=== PATIENT | female | born 1995 | race Two or more races ===

== ENCOUNTER → 2024-11-05 07:54 | Outpatient (CLI) | payer OTHER ==
[2024-11-05 09:01] LABS: HEMATOCRIT 36.5 % (36.0-45.00); HEMOGLOBIN 12.4 g/dL (12.0-15.00); MEAN CELL VOLUME 93.9 fL (80.00-100.00); MEAN CORPUSCULAR HGB CONC 34.1 g/dl (32.0-36.0); PLATELET COUNT 395 K/uL (150-450); RED BLOOD COUNT 3.89 M/uL (4.00-6.00); RED CELL DISTRIBUTION WIDTH 13.4 % (11.5-14.5)
[2024-11-05 09:19] LABS: COL EPI 89 SECONDS (82-175)
[2024-11-05 09:24] LABS: INR 1.01; PARTIAL THROMBOPLASTIN TIME 26.6 SECONDS (22.0-34.0)
== END | disposition home or self-care (01) ==
LOC: LAB 07:54
PROVIDERS: ATTEND Otolaryngology
DX: D68.9 Coagulation defect, unspecified (principal); O99.13 Other diseases of the blood and blood-forming organs and certain disorders involving the immune mechanism complicating the puerperium; I78.8 Other diseases of capillaries

== ENCOUNTER 2025-01-30 07:13 | Outpatient (CLI) | payer OTHER ==
[2025-01-30 08:52] LABS: URINE APPEARANCE Clear; URINE BILIRRUBIN Negative (NEGATIVE); URINE BLOOD Negative; URINE COLOR Yellow; URINE GLUCOSE Negative (NEGATIVE); URINE KETONE Negative (NEGATIVE); URINE LEUKOCYTE Negative; URINE NITRATE Negative; URINE PROTEIN Negative (NEGATIVE); URINE UROBILINOGEN 0.2 E.U./dl
[2025-01-30 08:54] LABS: HEMATOCRIT 36.1 % (36.0-45.00); HEMOGLOBIN 12.2 g/dL (12.0-15.00); MEAN CELL VOLUME 92.6 fL (80.00-100.00); MEAN CORPUSCULAR HEMOGLOBIN 31.2 pg (27.00-32.0); MEAN CORPUSCULAR HGB CONC 33.7 g/dl (32.0-36.0); PLATELET COUNT 352 K/uL (150-450); RED CELL DISTRIBUTION WIDTH 13.2 % (11.5-14.5)
[2025-01-30 08:56] LABS: URINE EPITHELIAL CELLS 8.2 uL (0.0-38.8); URINE RBC 9.5 uL (0.0-20.8)
[2025-01-30 09:21] LABS: URINE WBC 1.2 uL (0.0-23.2)
[2025-01-30 09:40] LABS: CALCIUM 8.8 mg/dL (8.5-10.1); CREATININE SERUM 0.55 mg/dL (0.55-1.02); GFR 130.68; POTASSIUM 4.42 mEq/L (3.5-5.1); TSH 1.5 uIU/mL (0.358-3.74)
== END 2025-01-30 07:14 | disposition home or self-care (01) ==
LOC: LAB 07:13
DX: R73.9 Hyperglycemia, unspecified (principal); R78.2 Finding of cocaine in blood; N39.0 Urinary tract infection, site not specified; R80.9 Proteinuria, unspecified; E55.9 Vitamin D deficiency, unspecified; D51.9 Vitamin B12 deficiency anemia, unspecified; D64.9 Anemia, unspecified; E03.9 Hypothyroidism, unspecified; Z12.11 Encounter for screening for malignant neoplasm of colon

== ENCOUNTER 2025-03-08 05:29 | Day surgery (SDC) | payer OTHER ==
[2025-03-01 08:15] LABS: URINE APPEARANCE Clear; URINE BILIRRUBIN Negative (NEGATIVE); URINE BLOOD Negative; URINE COLOR Yellow; URINE GLUCOSE Negative (NEGATIVE); URINE KETONE Negative (NEGATIVE); URINE LEUKOCYTE Negative; URINE NITRATE Negative; URINE PROTEIN Negative (NEGATIVE); URINE UROBILINOGEN 0.2 E.U./dl
[2025-03-01 08:16] VITALS: BP 114/84
[2025-03-01 08:20] LABS: URINE BACTERIA 113.7 uL (0.0-1933); URINE EPITHELIAL CELLS 7.4 uL (0.0-38.8); URINE RBC 7.5 uL (0.0-20.8); URINE WBC 2.2 uL (0.0-23.2)
[2025-03-01 08:33] LABS: BASO % 0.6 % (0.1-1.2); EOS # 0.16 (0.04-0.54); EOS % 1.4 % (0.7-7.0); HEMATOCRIT 34.7 % (34.1-44.9); HEMOGLOBIN 12.2 g/dL (11.2-15.7); LYMPH # 1.93 (1.18-3.74); LYMPH % 16.5 % (19.3-53.1); MEAN CORPUSCULAR HEMOGLOBIN 31.1 pg (25.6-32.2); MONO # 1.35 (0.24-0.82); MONO % 11.5 % (4.7-12.5); NEUT # 8.18 (1.56-6.13); NEUT % 69.8 % (34.0-71.1); PLATELET COUNT 386 K/uL (163-369); RED BLOOD COUNT 3.92 M/uL (3.93-5.22); RED CELL DISTRIBUTION WIDTH 13.8 % (11.6-14.4)
[2025-03-01 08:59] LABS: INR 1.04; PROTHROMBIN TIME 11.3 SECONDS (9.0-11.5)
[2025-03-01 09:00] LABS: ALBUMIN 3.7 gm/dL (3.4-5.0); BILIRUBIN TOTAL 0.57 mg/dL (0.3-1.2); CALCIUM 8.6 mg/dL (8.5-10.1); CREATININE SERUM 0.58 mg/dL (0.55-1.02); GFR 122.91; GLOBULINA 4.3 G/DL (2.4-3.5); POTASSIUM 4.21 mEq/L (3.5-5.1)
[~2025-03-08] VITALS: Ht 162.6 cm; Wt 59.4 kg
[~2025-03-08 05:29] MED LIST: PROAIR RESPICL90 MCG IH
[2025-03-08] MEDS ORDERED: DEXAMETHASONE 4 MG TABLET PO ONE (11:45)
[2025-03-08] MEDS ORDERED: MORPHINE SULFATE 4 MG/ML VIAL IV ONE (13:20)
== END 2025-03-08 16:30 | disposition home or self-care (01) ==
LOC: CIR.AMB 05:29
PROVIDERS: ATTEND Otolaryngology
DX: J35.1 Hypertrophy of tonsils (principal); Z91.041 Radiographic dye allergy status; Z91.013 Allergy to seafood

== ENCOUNTER 2025-03-19 09:23 | Outpatient (CLI) | payer OTHER ==
[2025-03-20 19:12] LABS: chla t Negative (Negative); neiss Negative (Negative)
== END 2025-03-19 09:31 | disposition home or self-care (01) ==
LOC: LAB 09:23
DX: Z00.00 Encounter for general adult medical examination without abnormal findings (principal)

== ENCOUNTER 2025-08-29 09:05 | Emergency (ER) | payer OTHER ==
[~2025-08-29] VITALS: Ht 162.6 cm; Wt 60.3 kg
[2025-08-29] MEDS ORDERED: BENZONATATE 200 MG CAPSULE PO ONE (09:45)
[2025-08-29] MEDS ORDERED: LEVALBUTEROL HCL 1.25 MG/3 ML SOLUTION IH ONE (09:45)
[2025-08-29] MEDS ORDERED: KETOROLAC TROMETHAMINE 60 MG VIAL IM ONE ×2 (09:45→10:28)
[2025-08-29] MEDS ORDERED: CEFTRIAXONE SODIUM 1,000 MG VIAL IM ONE (09:45)
[2025-08-29] MEDS ORDERED: CEFTRIAXONE SODIUM 1,000 MG VIAL ONE (10:28)
[2025-08-29 11:06] LABS: BASO % 1.3 % (0.1-1.2); EOS # 0.84 (0.04-0.54); EOS % 12.1 % (0.7-7.0); LYMPH # 1.70 (1.18-3.74); LYMPH % 24.4 % (19.3-53.1); MEAN PLATELET VOLUME 9.20 fl (9.4-12.4); MONO # 1.20 (0.24-0.82); NEUT # 3.13 (1.56-6.13); NEUT % 44.9 % (34.0-71.1); RED CELL DISTRIBUTION WIDTH 13.4 % (11.6-14.4)
[2025-08-29 12:01] LABS: MONO % 17.2 % (4.7-12.5)
[2025-08-29 12:03] LABS: COVID-19 AG NEGATIVE (NEGATIVE)
[2025-08-29] MEDS ORDERED: SINGULAIR10 MG PO (12:34)
[2025-08-29] MEDS ORDERED: PEPCID AC20 MG PO (12:34)
[2025-08-29] MEDS ORDERED: AZITHROMYCIN500 MG PO (12:34)
[2025-08-29] MEDS ORDERED: LEVALBUTER0.63 MG/3 IH (12:34)
== END 2025-08-29 13:22 | disposition home or self-care (01) ==
LOC: ER 09:05
PROVIDERS: General Practice
DX: G97.1 Other reaction to spinal and lumbar puncture (principal); Z88.8 Allergy status to other drugs, medicaments and biological substances; I10 Essential (primary) hypertension